=== PATIENT | female | born 1950 | race Caucasian/White ===

== ENCOUNTER 2020-01-12 08:09 | Outpatient (CLI) | payer MEDICARE, SELFPAY ==
--- NOTE | ~2020-01-12 | MM_ITS ---
EXAMINATION: MM screening [facility] BI w [place] HISTORY: Screening mammogram TECHNIQUE: Craniocaudal and mediolateral oblique 3-D tomosynthesis images were obtained and synthetic 2-D images were generated. CAD analysis was submitted and interpreted. COMPARISON: 11/28/2018, 12/11/2017, 11/20/2016 BREAST PARENCHYMAL COMPOSITION: There are scattered areas of fibroglandular density. FINDINGS: There is no evidence of suspicious mass, calcification, or architectural distortion to sugg est malignancy in either breast. There has been no suspicious interval change. IMPRESSION: 1. No mammographic evidence of malignancy. 2. Recommend routine screening mammography in one year. BI-RADS Category 1: Negative Reviewed, dictated and finalized at location A. [facility] LOCAL
== END 2020-01-12 08:10 | disposition home or self-care (01) ==
LOC: ANHIMG 08:16
PROVIDERS: Visit Provider Physician Assistant
DX: Z12.31 Encounter for screening mammogram for malignant neoplasm of breast (principal)
CPT/HCPCS: 77063; 77067

== ENCOUNTER 2020-12-26 07:25 | Outpatient (CLI) | payer MEDICARE, SELFPAY ==
--- NOTE | ~2020-12-26 | MM_ITS ---
EXAMINATION: MM screening [place] [facility] w [place] HISTORY: Screening TECHNIQUE: Craniocaudal and mediolateral oblique 3-D tomosynthesis images were obtained and synthetic 2-D images were generated. CAD analysis was submitted and interpreted. COMPARISON: Comparison to multiple prior studies sequentially, with oldest reviewed study dated 11/18. BREAST PARENCHYMAL COMPOSITION: There are scattered areas of fibroglandular density. FINDINGS: There is no evidence of suspicious mass, calcification, or architectural distortion to sugg est malignancy in either breast. There has been no suspicious interval change. IMPRESSION: 1. No mammographic evidence of malignancy. 2. Recommend routine screening mammography in one year. BI-RADS Category 1: Negative Reviewed, dictated and finalized at location A.
== END 2020-12-26 07:26 | disposition home or self-care (01) ==
LOC: ANHIMG 07:34
PROVIDERS: Visit Provider Physician Assistant
DX: Z12.31 Encounter for screening mammogram for malignant neoplasm of breast (principal)
CPT/HCPCS: 77063; 77067

== ENCOUNTER 2024-08-05 09:44 | Emergency (ER) | payer MEDICARE, OTHER, SELFPAY ==
--- NOTE | 2024-08-05 09:46 | ED_ITS ---
HPI - Eye Problem General Chief complaint: Eye Problems Stated complaint: LT [facility] Time Seen by Provider: 08/05/24 09:46 Source: patient Mode of arrival: ambulatory Limitations: no limitations History of Present Illness HPI Narrative: Patient is a 74-year-old female who presents with left eye redness and drainage this morning. Denies any vision changes, pain or foreign body sensation. Patient does watch her grandchildren but denies of any of them have similar symptoms. Denies any congestion, sore throat, cough, fever, chills, nausea, vomiting, diarrhea. Related Data Home Medications ?Medication ?Instructions ?Recorded ?Confirmed ?Last Taken ?Type buspirone 15 mg tablet 15 mg PO BID 01/05/19 08/05/24 Unknown History chlorthalidone 25 mg tablet 25 mg PO DAILY 01/05/19 08/05/24 Unknown History cholecalciferol (vitamin D3) 25 1,000 unit PO DAILY 01/05/19 08/05/24 Unknown History mcg (1,000 unit) capsule levothyroxine 88 mcg tablet 88 mcg PO DAILY 01/05/19 08/05/24 Unknown History losartan 50 mg tablet 50 mg PO DAILY 01/05/19 08/05/24 Unknown History raloxifene 60 mg tablet 60 mg PO DAILY 01/05/19 08/05/24 Unknown History Allergies Allergy/AdvReac Type Severity Reaction Status Date / Time Penicillins Allergy Mild rash Verified 08/05/24 09:49 Review of Systems Review of Systems: All systems reviewed & are unremarkable except as noted in HPI and below Constitutional: Constitutional: Denies body ache(s), Denies fever(s), Denies headache(s), Denies malaise and Denies weakness Eyes: Eyes: Denies blurry vision, Reports eye discharge, Reports irritation, Denies itchy eyes, Denies loss of vision and Denies eye pain ENT: Denies otalgia, Denies headache(s), Denies nasal discharge, Denies sinus pain and Denies sore throat Cardiovascular: Cardiovascular: Denies chest pain, Denies irregular heart rhythm and Denies dyspnea Respiratory: Respiratory: Denies dyspnea Gastrointestinal: Gastrointestinal: Denies abdominal pain, Denies diarrhea, Denies nausea and Denies vomiting Musculoskeletal: Musculoskeletal: Denies back pain, Denies myalgias and Denies arthralgias Integumentary/Breasts: Skin/Breast: Denies pruritus and Denies rash Neurologic: Denies headache(s), Denies loss of vision and Denies weakness Psychiatric: Psychiatric: Reports no additional psychiatric complaints Allergic/Immunologic: Allergic/Immunologic: Reports itchy eyes PMFSH Past Medical History Medical History Osteopenia after menopause Benign essential hypertension SHERRIE (generalized anxiety disorder) Hypothyroidism (acquired) Family History Family History Father Hypertension Family history of arthritis Sibling Malignant neoplasm of prostate Social History Social History Smoking packs per day: 1 Smoking cigarettes per day: 20.0 Smoking status: Former smoker Second hand tobacco smoke exposure: Yes Smoking end date: 02/22/90 Alcohol intake: current Drinks per week: 1 Alcohol use details: Social drinker Substance use: never Substance use type: does not use Living arrangements: with family Occupation/Education: occupation Gender identity (if verbalized by the patient): Female Comments At time of signature, agree with nursing past medical, surgical, social and family history. There is no relevant family history pertinent to the presenting complaint. Exam Const: General: cooperative, healthy appearing, comfortable, no acute distress and well nourished Nutritional Appearance: well nourished [place] ation/consciousness: patient oriented x3 Limitations: no limitations HENMT: Head: normal to inspection, normocephalic and atraumatic Ears: external ears normal Face/Nose/Sinus: Normal external nose present, normal facial exam and face symmetric Face and sinus: normal facial exam and face symmetric Mouth: Yes lip normal Eyes: General: appearance normal, both eyes and all related structures Visual Hillman: normal visual hlilman by confrontation Alignment and Position: alignment normal and position normal Periorbital: periorbital findings normal Eyelids: eyelids normal Conjunctivae: conjunctival abnormality left conjunctival injection diffuse and discharge mucoid Sclera: scleral abnormality left scleral injection diffuse Pupils: Equal, round and reactive pupils present EOM: EOMs intact bilaterally Direct Ophthalmoscopy: no photophobia Other: No hyphema, no foreign body under the lids. Neck: Neck: normal visual inspection, full ROM, no lymphadenopathy and no meningeal signs Chest: Chest palpation & inspection: normal inspection of the chest Resp: Effort & Inspection: normal respiratory effort and able to speak in complete sentences Auscultation: clear to auscultation bilaterally Cardio: Rate: regular rate Rhythm: regular rhythm Heart sounds: S1 normal heart sound present and S2 normal heart sound present GI: Inspection: normal to inspection Skin: General skin exam: normal color and no rashes or lesions noted Neuro: General: patient oriented x3, moves all extremities and no meningeal signs Cranial nerves: Yes Equal, round and reactive pupils present Speech: normal speech Gait exam (Neuro): Normal gait present Extrem: General: normal to inspection, full ROM and no edema Psych: Appearance: grossly normal and well kempt Mental Status: mental status grossly normal Speech and movement: Normal speech and movement present Affect: normal affect Attitude: cooperative Thought process: Normal thought process present Course Course Emergency Course: Patient is aware of diagnosis, understands and agrees to treatment plan. Anticipatory guidance given. Patient agrees to follow-up as directed and is aware of reasons to seek care at the emergency department. Portions of this record may have been created with voice recognition software Level of Care: Express Care Visit Vital Signs Vital signs: Vital Signs Temperature 35.9 C L 08/05/24 10:02 Pulse Rate 62 08/05/24 10:02 Respiratory Rate 16 08/05/24 10:02 Blood Pressure 125/71 08/05/24 10:02 Pulse Oximetry 99 08/05/24 10:02 Oxygen Delivery Room Air 08/05/24 10:02 Temperature 35.9 C L 08/05/24 10:02 Pulse Rate 62 08/05/24 10:02 Respiratory Rate 16 08/05/24 10:02 Blood Pressure 125/71 08/05/24 10:02 Pulse Oximetry 99 08/05/24 10:02 Oxygen Delivery Room Air 08/05/24 10:02 Reviewed MDM - Eye Problem MDM Narrative Medical decision making narrative: Pt well hydrated appearing, in no respiratory distress, hemodynamically stable. Recommend supportive care. The patient is stable at time of discharge the clinical impression was discussed and the patient was given the opportunity to ask questions, which were addressed as completely as possible given the information available at present. Anticipatory guidance and return to care precautions were discussed and the importance of primary care follow-up was stressed and encouraged. The patient voiced understanding of the plan, indications to return, and the need for follow-up. Exam findings show no acute concerns or changes Patient is appropriate for outpatient treatment and follow-up. Differential Diagnosis Differential diagnosis: Likely corneal abrasion, conjunctivitis and periorbital cellulitis Medical Records Attestation: I reviewed the patient's medical records. Discharge Plan Discharge Clinical Impression: Bacterial conjunctivitis Patient Disposition: Home Condition: Stable Instructions: Conjunctivitis (ED) Additional Instructions: Eye drops as prescribed. -Do this for 3 to 4 days until all redness and discharge has disappeared. -Cold compresses to the affected eye for comfort -May need warm compresses to remove debris in the morning -When cleaning the eyes used a washcloth/cotton ball in one direction then change washcloths/cotton ball before using it on another eye. -Do not share medicine--do not touch the eye with the medicine -Alternate or take Tylenol or ibuprofen as directed in the bottle for pain -Avoid screen time--television, computer, tablet or phone. -Practice good handwashing and hygiene to prevent spread of infection Follow-up with PCP or principal product manager if condition is not improving in 2-3days. Go to the emergency room if you have pain behind your eye, pressure behind her eye, difficulty seeing, or other severe symptoms Patient Language: Georgian Prescriptions: New ofloxacin 0.3 % drops See Rx Instructions .ROUTE .COMPLEX Qty: 10 0RF Rx Instructions: put 1-2 drps into left eye every 2-4 h x 2 days, then 1-2 drps 4 times/day days 3-7 No Action losartan 50 mg tablet 50 mg PO DAILY chlorthalidone 25 mg tablet 25 mg PO DAILY raloxifene 60 mg tablet 60 mg PO DAILY buspirone 15 mg tablet 15 mg PO BID levothyroxine 88 mcg tablet 88 mcg PO DAILY cholecalciferol (vitamin D3) 1,000 unit capsule 1,000 unit PO DAILY Follow-up/Referrals: Gaby,CORINE Varela [Primary Care Provider] - 3 Days Time of Disposition: 10:40
--- OUTSIDE RECORDS SUMMARY | 2024-08-05 09:46 | XMS_ITS | Data Portability ---
Author Organization [email or web address], [facility] Address [address] [address] Assessment Encounter Date Assessment Date Assessment LastModified by Organization Details LastModified Time 08/01/2020 08/01/2020 Pt has thinning hair on crown of scalp throughout. Discussed treatment options including series of 3 PRP + SurCord, or ALMI hair. Details of treatments including experimental nature were discussed and pt indicated complete understanding. She will discuss with her and schedule accordingly. [email or web address] Not available 08/01/2020 12:25:05 Plan of Treatment Reminders Order Date Submit Date Provider Last Modified By Organization Details Last Modified Time Details Appointments None record ed. Lab None record ed. Referral None record ed. Procedures None record ed. Surgeries None record ed. Imaging None record ed. Medication Orders None record ed. Patient TargetsNo targets recorded. Patient InstructionsNo instructions recorded. Reason for Referral None Reported. Medical Equipment None Reported. Allergies Allergen ID Allergen Name Allergen Category Reaction Reaction Severity Criticality Documentation Date Start Date Code Code System Note Provider Name and Address Organization Details Recorded Time 71832 Product containin g penicilli n (product) medicatio n Not available Not available Not available 08/01/2020 71192 [id number] SNOMED Padmini Randal [id number] [facility] [address] [address], [place], [address] [employer] 11:52:54 Medications Name Sig Start Date Stop Date Status Note LastModified by Organization Details LastModified Time atorvastatin 10 mg tablet active Not Available Not Available No t Available chlorthalidone 25 mg tablet TAKE 1 TABLET BY MOUTH ONCE DAILY active Not Available Not Available No t Available Euthyrox 75 mcg tablet TAKE 1 TABLET BY MOUTH ONCE DAILY active Not Available Not Available No t Available Euthyrox 88 mcg tablet TAKE 1 TABLET BY MOUTH ONCE DAILY active Not Available Not Available No t Available buspirone 15 mg tablet TAKE 1 2 TO 1 (ONE HALF TO ONE) TABLET BY MOUTH THREE TIMES DAILY active Not Available Not Available No t Available Vitals Date Recorded Heart rate Body height Body mass index (BMI) Body weight Systolic blood pressure Diastolic blood pressure Provider Name and Address Organization Details Last Updated DateTime 1 72 /min 154.94 cm 23.2 kg/m2 89000.8 6 g 153 mm[Hg] 82 mm[Hg] Padmini Tee [address] [facility] [address], [place], [address], [employer] 1 10:33:47 Social History Question Answer Notes LastModified by [facility] Management Details LastModified Time Tobacco Smoking Status Former Smoker Padmini Tee [address] [facility] [address] [facility],[address], [address], [employer] 08/01/2020 11:53:45 Marital Status Informatio n not available 08/01/2020 Sex: Unknown Functional Status Question Answer Note LastModified by [facility] Management Details LastModified Time What is your level of alcohol consumption? Occasional Information not available 08/01/2020 What is your occupation? retired Information not available 08/01/2020 Mental Status None recorded. Family History Nothing Reported. Medical History Condition Response Coronary Artery Disease N HIV or AIDS N Other Cancer N Gout N Kidney Stones N Hyperthyroidism N Breast Cancer N Hernia N Head Trauma/Injury N Lung Cancer N Blood Clots N COPD N Depression N Lung Disease N Hypothyroidism Y Pacemaker N Anxiety Disorder N Arthritis N Kidney Cancer N Cancer N Stroke N Neck Injury N Leg or Foot Ulcers N High Cholesterol N Skin Cancer N Liver Disease N Rheumatoid Arthritis N Headaches N Fibromyalgia N Concussion N Kidney Disease N Heart Problems N Prostate Cancer N Migraines N Thyroid Problems N Autoimmune Disorder N Anemia N Multiple Sclerosis N Tendon Tear N Ulcers N Heart Attack (SD) N Diabetes N Bleeding Disorder N Seizures/Epilepsy N Tuberculosis N Urinary Tract Infection N Back Problems N Diverticulitis N Asthma N Lupus N Peripheral Vascular Disease N Sleep Disorder N GERD/Reflux N Hepatitis N Aneurysm N Thyroid Cancer N Heart Disease N Pulmonary Embolism N Hypertension N Osteoporosis N Gynecological HistoryNo gynecological history recorded. Obstetrics History GPAL:G 0 P 0 0 0 0 Past Encounters Encounter ID Performer Location Encounter Start Date Encounter Closed Date Diagnosis/Indication Diagnosis SNOMED-CT Code Diagnosis ICD10 Code Diagnosis Note [id number] Mónica Jaron [facility] 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 L64.8 Health Concerns Section Related Observation LastModified by Organization Detai ls LastModified Time None Recorded Concern Status LastModified by Organization Details LastModified Time None Recorded Advance Directives Directive None Recorded Payers Insurance Date Sequence Insurance Name Policy Number Policy Crouch Covered Member ID Crouch Member ID Guarantor Name 08/01/2020 1 [place] Marii Porter [id number] Marii Porter 09/12/2020 2 AET[employer] (POS II) Marii Porter [id number] Marii Porter Notes Date Note Type Note Provider Name and Address Organization Details Recorded Time 08/01/2020 text/html Pt is a 70 y/o female here for a consultation for hair thinning over the last 35 years. She states that she had significant hair fallout after delivery of second child but it never recovered even with subsequent . She was diagnosed with low thyroid for which she takes levothyroxine and currently has no sx's of fatigue, skin or nail issues. She does have osteoporosis and is being treated with an infusion twice a year, otherwise she is overall healthy, eats whole food diet and does zoomba 6-7 days weekly. She was recently placed on a statin, but denies any side effects. Mónica Salmeron [address], [place], [address], [facility] [employer], [facility] 09/12/2020 11:45:51 OBGyn Episode No OBEpisode recorded.
--- OUTSIDE RECORDS SUMMARY | 2024-08-05 09:46 | XMS_ITS | Encounter Summary ---
Author Organization [facility] Address [address] [place] [address] Care Team Providers Care Copy Holder Name Role Phone Harirs Saucedo DO Primary Care Provider [phone] Encounter Details Date Type Department Care Team (Late st Contact Info) Description 06/30/2021 Treatment [facility] [address] [place] [phone] Gretta Murphy MD [address] [facility] [address] [place] [address] Social History Tobacco Use Types Packs/Day Years Used Date Smoking Tobacco: Former Smokeless Tobacco: Never Comments Unknown Sex and Gender Information Value Date Recorded Sex Assigned at Not on file 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
--- OUTSIDE RECORDS SUMMARY | 2024-08-05 09:46 | XMS_ITS | Clinical Summary ---
Author Organization [facility] Address [address] [place] [address] Care Team Providers Care Computer Programming Manager Name Role Phone Unavailable Primary Care Provider Unavailabl e Source Comments [facility],non-owned Affiliates and Associated Physician Practices is amultiple site organization consisting of ambulatory clinics and hospital sitesin [place], [place], [place] and [place]. This disclosure is being madepursuant to the Care Everywhere program and may not contain all information available regarding this patient. Last updated 17.[facility] Allergies Active Allergy Reactions Criticality Noted Date Comments Penicillins 06/15/2016 Medications * Be aware that medications may not be up to date on this document. Alwaysverify current medications with the patient. Raloxifene HCl (EVISTA PO) Active BusPIRone HCl (BUSPAR PO) Active VITAMIN D, CHOLECALCIFEROL, PO Active benzonatate (TESSALON) 100 MG capsule Take 1 Cap by mouth 3 times daily as needed for Cough 30 Cap 7 Active albuterol HFA (PROAIR HFA) 108 (90 BASE) MCG/ACT inhalerIndicatio ns:Acute bronchitis, unspecified organism Inhale 2 Puffs by mouth every 4 hours as needed for Shortness of Breath, Wheezing or Cough 1 Inhaler 7 Active Social History Tobacco Use Types Packs/Day Years Used Date Smoking Tobacco: Never Comments No Sex and Gender Information Value Date Recorded Sex Assigned at Not on file Legal Sex Female 10:02 AM CDT Gender Identity Not on file Sexual Orientation Not on file Last Filed Vital Signs Vital Sign Reading Time Taken Comments Blood Pressure 128/74 06/30/2016 2:32 PM CDT Pulse 78 06/30/2016 2:32 PM CDT Temperature 37.1 C (98.8 F) 06/30/2016 2:32 PM CDT Respiratory Rate 16 06/30/2016 2:32 PM CDT Oxygen Saturation 96% 06/30/2016 2:32 PM CDT Inhaled Oxygen Concentration - - Weight 56.7 kg (125 lb) 06/30/2016 2:32 PM CDT Height 154.9 cm (5' 1) 06/30/2016 2:32 PM CDT Body Mass Index 23.62 06/30/2016 2:32 PM CDT Plan of Treatment Health Maintenance Due Date Last Done Comments BONE DENSITY TESTING 1950 COLOGUARD (AGES 45-75) - COL ON CA SCREENING 1950 COLON MONITORING 1950 COLONOSCOPY - COLON CA SCREENING 1950 CT COLONOGRAPHY - COLON CA SCREENING 1950 Colorectal Cancer Screening 1950 FIT - COLON CA SCREENING 1950 FLEX SIG - COLON CA SCREENING 1950 LIPID TESTING 1950 MAMMOGRAM 1950 HEPATITIS C SCREENING 06/07/1969 DTAP/TDAP/TD VACCINES (1 - Tdap) 06/11/1970 PNEUMOCOCCAL VACCINE 50+ (1 of 1 - PCV) 06/11/2001 ZOSTER VACCINE (1 of 2) 06/11/2001 COVID-19 VACCINE ( - 2023-2 5 season) 2023 DEPRESSION SCREENING 02/23/2024 INFLUENZA VACCINE (Season Ended) 2024 Respiratory Syncytial Virus (RSV) Vaccine Pt: or over 60 yrs (1 - 1-dose 75+ series) 06/11/2026 HEPATITIS B VACCINE Aged Out No longe r eligible based on patient's age to complete this topic HIB VACCINE Aged Out No longer eligi ble based on patient's age to complete this topic HPV VACCINE Aged Out No longer eligi ble based on patient's age to complete this topic MENINGOCOCCAL (Group B) VACC INE SHARED DECISION-MAKING Aged Out No longer eligibl e based on patient's age to complete this topic MENINGOCOCCAL GROUPS A/C/Y/W VACCINE Aged Out No longer eligible b ased on patient's age to complete this topic Insurance MEDICARE MEDICARE
--- OUTSIDE RECORDS SUMMARY | 2024-08-05 09:46 | XMS_ITS | Clinical Summary ---
Author Organization [facility] Address [address] [place] [address] Care Team Providers Care Syrup Mixer Helper Name Role Phone StanislawHarris goldsteinNguyen STODDARD Primary Care Provider [phone] Allergies Active Allergy Reactions Criticality Noted Date Comments Penicillins Unknown 06/15/2016 Medications chlorthalidone 25 mg tablet Take 1 tablet (25 mg total) by mouth daily 0 Active levothyroxine (SYNTHROID) 88 mcg tablet Take 1 tablet (88 mcg total) by mouth standard machine stitcher before breakfast Active raloxifene (EVISTA) 60 mg tablet Take 1 tablet (60 mg total) by mouth daily Active busPIRone (BUSPAR) 15 mg tabletIndicati ons:Generalize d Anxiety Disorder Take 1 tablet (15 mg total) by mouth 3 (three) times a day Active calcium carbonate-david min D3 1,250mg (500mg elemental) - 200 units per tabletIndicati ons:1000 ant daily Take 1 tablet by mouth daily Calcium 600 mg daily + D3 800 international units Total of vitamin D 1800 international units daily. Active cholecalcifero l (VITAMIN D-3) 1,000 unitIndication s:1000 I U every other day Take 1 tablet/capsule (1,000 Units total) by mouth daily Total with calcium 1800 international units Active omega-3 fatty acids 500 mg capsule Take by mouth Active magnesium salicylate-caf feine 162.5-50 mg tablet Take by mouth Active aspirin 81 mg enteric coated tablet Take 1 tablet (81 mg total) by mouth daily Active zoledronic acid-mannitoL- water (RECLAST) 5 mg/100 mL piggyback Infuse 100 mL (5 mg total) into a venous catheter once Active atorvastatin (LIPITOR) 10 mg tablet 1 Active garlic 1,000 mg capsule Take by mouth Activ e biotin 1 mg tablet Biotin 1000 MCG Oral Tablet QTY: 0 tablet Days: 0 Refills: 0 Written: 10/27/22 Patient Instructions: 3 Active Active Problems Problem Noted Date Diagnosed Date Age-related osteoporosis wit hout current pathological fracture 04/25/2019 Family History Medical History Relation Name Comments Osteoporosis Mother Relation Name Status Comments Mother Social History Tobacco Use Types Packs/Day Years Used Date Smoking Tobacco: Former Smokeless Tobacco: Never Tobacco Cessation:Counseling Given: Not Answered Personal Safety Answer Date Recorded Getting School Help Needed Not on file 02/14 Comments Unknown Sex and Gender Information Value Date Recorded Sex Assigned at Not on file Legal Sex Female 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 Gender Identity Not on file Sexual Orientation Not on file Obstetrics History Last Filed Vital Signs Vital Sign Reading Time Taken Comments Blood Pressure 114/66 07/07/2021 3:19 PM CDT Pulse 60 07/07/2021 3:19 PM CDT Temperature 36.4 C (97.6 F) 07/07/2021 3:19 PM CDT Respiratory Rate 14 06/07/2020 12:47 PM CDT Oxygen Saturation - - Inhaled Oxygen Concentration - - Weight 55.8 kg (123 lb) 12/16/2022 9:57 AM CDT Height 153 cm (5' 0.25) 12/16/2022 9:57 AM CDT Body Mass Index 23.82 12/16/2022 9:57 AM CDT Plan of Treatment Health Maintenance Due Date Last Done Comments Breast Cancer Screening-Mammogram 1950 Colon Cancer Screening-Colonoscopy 1950 Depression Screening 1950 Fall Risk Assessment 1950 Hepatitis C Screening 1950 Hepatitis B Screening 06/11/1969 Zoster Vaccine (2 of 3) 05/27/2011 04/01/2011 Well Visit 65+ 06/11/2016 Covid-19 Vaccine (2023-2 5 season) 2023 01/01/2021, 05/03/2020, 04/05/2020 Influenza Vaccine (Season Ended) 2024 12/31/19 Osteoporosis Screening-Bone Density Scan 12/16/2024 12/16/2022, 06/10/2021, 04/30/2020, Additional history exists DTaP/Tdap/Td Vaccine (3 - Td or Tdap) 07/24/2027 07/23/2017, 07/11/2017 Pneumococcal vaccine 65+ Completed 03/02/2020, 12/24 Procedures Procedure Name Priority Date/Time Associated Diagnosis Comments DEXA TBS AXIAL SKELETON BONE DENSITY 1 OR MORE SITES Schedule Routine, Read Routine (OP Routine) 12/16/2022 10:21 AM CDT Age-related osteoporosis without current pathological fracture from Last 3 Months or Most Recently Relevant to Health Maintenance Results * Dexa TBS Axial Skeleton Bone Density 1 or more sites (12/16/2022 10:21 AM CDT) Anatomical Region Laterality Modality Wrist, Body N/A Radiographic Kaia ging Narrative 12/16/2022 3:18 PM CDT Patient Name: Marii Porter Date of : 1950 Date of scan: 12/16/2022 Bone mineral density was performed on a [employer] Discovery Densitometer. Based on machine cross-calibration and precision studies the least significant changes of this densitometer is 0.024 g/cm2 at the spine, 0.020 g/cm2 at the total proximal femur, and 0.014g/cm2 at the forearm. HISTORY: This is a 72 y.o. postmenopausal female with a history of low bone mass, thyroid disease, and vitamin D deficiency. She reports that she has quit smoking. She has never used smokeless tobacco. Currently on treatment with calcium, zoledronic acid (Reclast), and thyroid hormone, previously treated with raloxifene (Evista), and current complaint of back pain and leg pain. INDICATIONS: Menopause status, treatment monitoring, vitamin D deficiency, and history of low bone mass. FINDINGS: BONE MINERAL DENSITY OF THE LUMBAR SPINE Bone Mineral Density (BMD) of the lumbar spine was measured from L1-L4 and the average density was calculated to be 0.902 gm/cm2. This corresponds to a T-score (standard deviations from the mean of young adults) of -1.3. When compared to the previous study of 06/10/2021 there has been no significant changes in bone density. BONE MINERAL DENSITY OF THE PROXIMAL FEMUR Bone Mineral Density (BMD) of the left hip total was found to be 0.748 gm/cm2. This corresponds to a T-score standard deviations from the mean of young adults of -1.6. Femoral neck is 0.628 gm/cm2 with a T-score (standard deviations from the mean of young adults) of -2.0. When compared to the previous study of 06/10/2021 there has been no significant changes in bone density. BONE MINERAL DENSITY OF THE PROXIMAL FEMUR Bone Mineral Density (BMD) of the right hip total was found to be 0.706 gm/cm2. This corresponds to a T-score standard deviations from the mean of young adults of -1.9. Femoral neck is 0.557 gm/cm2 with a T-score (standard deviations from the mean of young adults) of -2.6. When compared to the previous study of 06/10/2021 there has been no significant changes in bone density. SUMMARY: Bone mineral density shows evidence of osteoporosis and marked increase risk of fracture. There has been no significant changes in bone density since previous measurement. The lumbar spine Trabecular Bone Score is 1.399 which suggests normal bone microarchitecture, compared to the general population. Final decisions regarding diagnostic or therapeutic recommendations should include BMD, TBS, additional clinical risk factors as well the clinical context of the patient. Please see attached TBS results for further details. ADDITIONAL COMMENTS: Postmenopausal Women and Men Over 50: Diagnostic criteria: Osteoporosis: BMD at or below -2.5 T-score; Osteopenia (low bone mass): BMD between -1.0 and -2.5 T-score. If the patient has a history of a fragility fracture, a fracture that occurred with trauma equivalent to a fall from a standing position or less, then the diagnosis is osteoporosis regardless of bone density. The history and data sections of the bone mineral density scan were prepared by Cindi Bal) LAURENT who is accredited by the International Society of Clinical Densitometry. The overall patient assessment and scan interpretation were performed by Gretta Murphy M.D. who is certified by the International Society of Clinical Densitometry. [id number] Gretta Murphy MD IMG DXA PROCEDURES Final Resu lt from Last 3 Months or Most Recently Relevant to Health Maintenance Insurance MEDICARE [facility] MEDICARE [facility] [place] [address] Care Teams Syrup Mixer Helper Relationship Specialty Start Date End Date Harris Saucedo DO [address] [place] [id number] PCP - General Family Practice 02/06/19
--- OUTSIDE RECORDS SUMMARY | 2024-08-05 09:46 | XMS_ITS | Referral Summary ---
Author Organization [facility] Address [address] [place] [address] Care Team Providers Care Knotter Hand Name Role Phone AnkitaHarris lincoln Nahomy STODDARD Primary Care Provider [phone] Allergies Active Allergy Reactions Criticality Noted Date Comments Penicillins Unknown 06/15/2016 Medications chlorthalidone 25 mg tablet Take 1 tablet (25 mg total) by mouth daily 0 Active levothyroxine (SYNTHROID) 88 mcg tablet Take 1 tablet (88 mcg total) by mouth schedule planning manager before breakfast Active raloxifene (EVISTA) 60 mg [...] osteoporosis wit hout current pathological fracture 04/25/2019 Social History Tobacco Use Types Packs/Day Years Used Date Smoking Tobacco: Former Smokeless Tobacco: Never Tobacco Cessation:Counseling Given: Not Answered Personal Safety Answer Date Recorded Getting School Help Needed Not on file 02/14 Comments Unknown Sex and Gender Information Value Date Recorded Sex Assigned at Not on file 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 Based on machine cross-calibration and [...] mineral density scan were prepared by Cindi Brown(Kerry) LAURENT who is accredited by the International Society of Clinical Densitometry. The overall patient assessment and scan interpretation were performed by Gretta Murphy M.D. who is certified by the International Society of Clinical Densitometry. [id number] Gretta Murphy MD IMG DXA PROCEDURES Final Resu lt from Last 3 Months or Most Recently Relevant to Health [place] [address] [facility] [place] [address] [employer] Care Teams Knotter Hand Relationship Specialty Start Date End Date Harris Saucedo DO [address] [place] [id number] PCP - General Family Practice 02/06/19
[2024-08-05 10:02] VITALS: BP 125/71; PULSE 62; RESP 16; TEMP 35.9; O2SAT 99
== END 2024-08-05 10:42 | disposition home or self-care (01) ==
PROVIDERS: Emergency Provider Nurse Practitioner Family; PCP Physician Assistant
DX: H10.9 Unspecified conjunctivitis (principal); I10 Essential (primary) hypertension; M85.80 Other specified disorders of bone density and structure, unspecified site; E03.9 Hypothyroidism, unspecified; F41.1 Generalized anxiety disorder; Z87.891 Personal history of nicotine dependence
CPT/HCPCS: 99213; G0463